=== PATIENT | male | born 1935 | race Caucasian/White ===

== ENCOUNTER → 2016-05-02 | Outpatient (CLI) | payer MEDICARE ==
[2016-05-02 08:31] LABS: Blood Urea Nitrogen 31 mg/dL (9-20); Non-African American GFR(MDRD) >60 (>60 ml/min/1.73 sqM)
--- NOTE | 2016-05-02 10:57 | CT ---
EXAMINATION TYPE: CT ChestAbdPelvis w con DATE OF EXAM: 05/02/2016 10:06 AM COMPARISON: CT cap February 05, 2016. HISTORY: Prostate cancer CT DLP: 964.50 mGycm. Automated Exposure Control for Dose Reduction was Utilized. CONTRAST: CT scan of the thorax, abdomen and pelvis is performed with oral and with IV Contrast, patient inject ed with 100 ml mL of Omnipaque 300. FINDINGS: LUNGS: Dependent atelectasis is present in both lower lobes. There is no suspicious parenchymal nodul e or mass identified bilaterally. No pleural effusion or pneumothorax is seen bilaterally. Tracheobro nchial tree is patent. MEDIASTINUM: There are no greater than 1 cm hilar or mediastinal lymph nodes. No pericardial effusi on is seen. There is persistent mild cardiomegaly with mild to moderate left atrial left ventricular dilatation redemonstrated. OTHER: Bilateral gynecomastia is redemonstrated. LIVER/GB: Cholecystectomy clips are redemonstrated. PANCREAS: No significant abnormality is seen. SPLEEN: No significant abnormality is seen. ADRENALS: No significant abnormality is seen. KIDNEYS: There are a few simple appearing cysts scattered throughout both kidneys. There is a nonspec ific subcentimeter hypodense lesion upper pole level left kidney that is stable and can be followed o n axial image 68 series 3. Partially calcified low dense subcentimeter lesion lower pole level right kidney is stable BOWEL: Diverticula are seen in the left and sigmoid colon. There is no CT evidence for acute divertic ulitis. GENITAL ORGANS: There are some scattered pelvic phleboliths noted. Prostate gland is surgically absen t. LYMPH NODES: No greater than 1cm abdominal or pelvic lymph nodes are appreciated. OSSEOUS STRUCTURES: Innumerable diffuse sclerotic metastatic lesions are redemonstrated. There is sta ble mild height loss or prominent Schmorl node superior L3 and L4 endplates. OTHER: There is large fat-containing left inguinal hernia redemonstrated. IMPRESSION: Diffuse sclerotic metastatic disease redemonstrated. Difficult to assess interval change given the diffuse pattern. No new mass or adenopathy is seen to suggest neoplastic progression. Prost ate is surgically absent.
--- NOTE | 2016-05-02 11:49 | NM ---
EXAMINATION TYPE: NM bone scan whole body DATE OF EXAM: 05/02/2016 11:42 AM COMPARISON: 02/05/2016 HISTORY: Metastatic prostate carcinoma Delayed whole-body scanning was performed following the injection of 27.5 mCi Tc 99m MDP. Images acq uired 3.5 hours post injection. FINDINGS: Noted are essentially stable innumerable foci of increased signal throughout the cervical, thoracic a nd lumbar spines as well as the bilateral ribs, bilateral humeri, bilateral femora as well extensivel y throughout the pelvis. The findings are compatible with extensive metastatic bony lesions. IMPRESSION: No significant change in bony metastases.
== END | disposition home or self-care (01) ==
LOC: RADCTMAIN 07:31
PROVIDERS: ATTEND Internal Medicine Medical Oncology
DX: C79.51 Secondary malignant neoplasm of bone (principal); Z90.79 Acquired absence of other genital organ(s)
CPT/HCPCS: 82565; 84520; 71260; 74177; 36415; 78306; A9503; Q9967